=== PATIENT | female | born 1930 | race Caucasian/White ===

== ENCOUNTER 2017-05-19 10:37 | Day surgery (SDC) | payer OTHER, SELFPAY ==
[~2017-05-19] VITALS: Ht 154.9 cm; Wt 57.6 kg
[~2017-05-19 10:37] MED LIST: ASPI81CH PO; CALCAVITDA; CHOLP; CLON.1; CLON.1 PO; EZET10; HYDCHL12.5 PO; HYDCHL25; LORA2 PO; MECL25; MECL25 PO; METO50; MULVITA; NAPROXEN PO; NIFE60ER PO; PREVALITE POWD231 G1 PO; PROP80ER PO
[2017-05-20 04:46] LABS: BASOPHILS ABSOLUTE AUTO 0.03 K/mm3 (0.00-0.23); BASOPHILS PERCENT AUTO 0 % (0-2); EOSINOPHILS ABSOLUTE AUTO 0.51 K/mm3 (0.00-0.68); EOSINOPHILS PERCENT AUTO 5 % (0-6); Hematocrit 32.5 % (33.0-51.0); Hemoglobin 10.5 g/dL (11.5-16.0); IMMATURE GRAN ABSOLUTE AUTO 0.03 K/mm3 (0.00-0.10); IMMATURE GRAN PERCENT AUTO 0 % (0-1); LYMPHOCYTES ABSOLUTE AUTO 1.63 K/mm3 (0.84-5.20); LYMPHOCYTES PERCENT AUTO 16 % (21-46); MONOCYTES ABSOLUTE AUTO 0.79 K/mm3 (0.16-1.47); MONOCYTES PERCENT AUTO 8 % (4-13); Mean Corpuscular HGB 28.7 pg (26.0-34.0); Mean Corpuscular HGB Conc 32.3 g/dL (31.5-36.5); Mean Corpuscular Volume 89 fL (80-100); Mean Platelet Volume 11.4 fL (9.1-12.4); NEUTROPHILS ABSOLUTE AUTO 7.51 K/mm3 (1.96-9.15); NEUTROPHILS PERCENT AUTO 72 % (41-73); Platelet Count 224 K/mm3 (150-400); RDW Coefficient Variation 13.2 % (11.7-14.2); RDW Standard Deviation 42.7 fL (35.1-46.3); Red Blood Cell Count 3.66 M/mm3 (3.80-5.20)
[2017-05-20 05:12] LABS: Anion Gap 5 mmol/L (6-16); Blood Urea Nitrogen 15 mg/dL (8-24); Bun/Creatinine Ratio 19.9 (12.0-20.0); CO2, Blood 33 mmol/L (21-32); Calcium, Blood 8.3 mg/dL (8.5-10.1); Chloride, Blood 99 mmol/L (98-108); Creatinine, Blood 0.75 mg/dL (0.40-1.00); Glomerular Filtration Rate >60 (60-); Glucose, Blood 99 mg/dL (70-99); Potassium, Blood 3.6 mmol/L (3.5-5.5); Sodium, Blood 137 mmol/L (136-145)
[2017-05-20] MEDS ORDERED: ASPI325EC PO (14:24)
[2017-05-20] MEDS ORDERED: DOCU100 PO (14:25)
[2017-05-20] MEDS ORDERED: OXYC5 PO (14:25)
== END 2017-05-20 15:15 | disposition home or self-care (01) ==
LOC: PRE IP 10:37 → SURS 10:37 → ORSCMMR 10:37 → SURS 10:37 → PRE IP 11:30 → EDSTATUS 11:30 → PRE IP 12:15 → SURS 18:27 → ORSCMMR 05-20 15:15
PROVIDERS: Orthopaedic Surgery
PROC: 0SRD0J9 Replacement of Left Knee Joint with Synthetic Substitute, Cemented, Open Approach (ICD-10-PCS; principal; 2017-05-19 12:15)
DX: M17.12 Unilateral primary osteoarthritis, left knee (principal); I10 Essential (primary) hypertension; Z95.0 Presence of cardiac pacemaker; Z01.812 Encounter for preprocedural laboratory examination; Z01.818 Encounter for other preprocedural examination; Z79.899 Other long term (current) drug therapy
CPT/HCPCS: 36415; 73560-LT; 80048; 85025; 86850; 86900; 86901; 88300; 93286; 97110; 97116; 97162; 97530; C1713; C1776; G8978; G8979; J0171; J0690; J0735; J1885; J2250; J2795; J3010; J7120

== ENCOUNTER → 2017-12-24 | Outpatient (CLI) | payer OTHER, SELFPAY ==
[~2017-12-24] MED LIST changes: +ASPI325EC PO; +DOCU100 PO; +OXYC5 PO
== END ==
LOC: PLD 14:30 → LAB SHORT 14:30
DX: C44.41 Basal cell carcinoma of skin of scalp and neck (principal)
CPT/HCPCS: 88305

== ENCOUNTER → 2018-01-11 | Outpatient (CLI) | payer OTHER | END | disposition home or self-care (01) | LOC: PLD 07:41 → LAB SHORT 07:41 | DX: C44.41 Basal cell carcinoma of skin of scalp and neck (principal) | CPT/HCPCS: 88305 ==

== ENCOUNTER 2018-08-18 06:07 | Day surgery (SDC) | payer OTHER ==
[~2018-08-18] VITALS: Ht 154.9 cm; Wt 55.0 kg
[~2018-08-18 06:07] MED LIST changes: +B-12 PO; +BIOTIN PO; +CALCIUM WITH VIT D PO; +FISH OIL PO; +FLAX PO; +Glucosamine-Ch1 EACH PO; +LO-DOSE ASPIRIN81 MG PO; +MULTIVITAMIN PO; +Naproxen375 MG PO; +ZINC PO
[2018-08-18] MEDS ORDERED: LOSARTAN-HCTZ1 EACH PO (08:10)
== END 2018-08-19 22:48 | disposition home or self-care (01) ==
LOC: MHTC 06:07
DX: I08.3 Combined rheumatic disorders of mitral, aortic and tricuspid valves (principal); I10 Essential (primary) hypertension; E78.5 Hyperlipidemia, unspecified; M85.80 Other specified disorders of bone density and structure, unspecified site; Z79.82 Long term (current) use of aspirin; Z79.899 Other long term (current) drug therapy; Z88.8 Allergy status to other drugs, medicaments and biological substances; Z87.891 Personal history of nicotine dependence; Z95.0 Presence of cardiac pacemaker
CPT/HCPCS: 93312; 93325; 99152; J2250; J3010; J7040

== ENCOUNTER → 2019-03-03 | Outpatient (CLI) | payer OTHER ==
[~2019-03-03] MED LIST changes: +LOSARTAN-HCTZ1 EACH PO
== END | disposition home or self-care (01) ==
LOC: PLD 07:26 → LAB SHORT 07:26
DX: D04.0 Carcinoma in situ of skin of lip (principal)
CPT/HCPCS: 88305

== ENCOUNTER → 2019-06-14 | Outpatient (CLI) | payer OTHER ==
[2019-06-14 14:57] LABS: Bilirubin, Urine Neg (Neg); Blood, Urine Neg (Neg); Glucose Qualitative, Urine Neg (Neg); Ketones, Urine Neg (Neg); Leukocyte Esterase, Urine 3+ (Neg); Nitrite, Urine Neg (Neg); Protein, Urine Neg (Neg); Urobilinogen, Urine NORM (Normal); pH, Urine 6.5 (5.0-8.0)
[2019-06-14 15:23] LABS: Appearance, Urine Clear (Clear); Color, Urine Yellow (P-Yellow)
[2019-06-14 15:25] LABS: Bacteria Few /hpf; Red Blood Cells, Urine 0-2 /hpf (0-2); Squamous Epithelial Cells Rare /hpf (Few); White Blood Cells, Urine 25-50 /hpf (0-5)
== END | disposition home or self-care (01) ==
LOC: LAB SHORT 12:17 → LAB 12:17
PROVIDERS: Internal Medicine
DX: I12.9 Hypertensive chronic kidney disease with stage 1 through stage 4 chronic kidney disease, or unspecified chronic kidney disease (principal); N18.3 Chronic kidney disease, stage 3 (moderate)
CPT/HCPCS: 81001; 82570; 84156

== ENCOUNTER 2019-12-12 13:20 | Emergency (ER) | payer OTHER ==
[~2019-12-12] VITALS: Ht 157.5 cm; Wt 61.2 kg
[~2019-12-12 13:20] MED LIST changes: +MULTI VITAMIN1 EACH PO; -MULTIVITAMIN PO
[2019-12-12 13:39] LABS: BASOPHILS ABSOLUTE AUTO 0.04 K/mm3 (0.00-0.23); BASOPHILS PERCENT AUTO 0 % (0-2); EOSINOPHILS PERCENT AUTO 0 % (0-6); Hematocrit 38.2 % (33.0-51.0); Hemoglobin 12.4 g/dL (11.5-16.0); IMMATURE GRAN ABSOLUTE AUTO 0.05 K/mm3 (0.00-0.10); IMMATURE GRAN PERCENT AUTO 0 % (0-1); LYMPHOCYTES ABSOLUTE AUTO 1.28 K/mm3 (0.84-5.20); LYMPHOCYTES PERCENT AUTO 9 % (21-46); MONOCYTES ABSOLUTE AUTO 0.41 K/mm3 (0.16-1.47); MONOCYTES PERCENT AUTO 3 % (4-13); Mean Corpuscular HGB Conc 32.5 g/dL (31.5-36.5); Mean Corpuscular Volume 89 fL (80-100); Mean Platelet Volume 11.3 fL (9.1-12.4); NEUTROPHILS ABSOLUTE AUTO 12.53 K/mm3 (1.96-9.15); NEUTROPHILS PERCENT AUTO 88 % (41-73); Platelet Count 309 K/mm3 (150-400); RDW Coefficient Variation 13.2 % (11.7-14.2); RDW Standard Deviation 43.7 fL (35.1-46.3); Red Blood Cell Count 4.28 M/mm3 (3.80-5.20); White Blood Cell Count 14.31 K/mm3 (4.00-11.30)
[2019-12-12 13:55] LABS: Alanine Aminotransfer (ALT/SGP 22 U/L (12-78); Albumin, Blood 3.8 g/dL (3.4-5.0); Albumin/Globulin Ratio 0.8 (0.8-1.8); Alk Phos 84 U/L (50-136); Anion Gap 7 mmol/L (6-16); Aspartate Aminotrans (AST/SGOT 17 U/L (12-37); Bilirubin, Total 0.8 mg/dL (0.1-1.0); Blood Urea Nitrogen 30 mg/dL (8-24); Bun/Creatinine Ratio 40.6 (12.0-20.0); CO2, Blood 29 mmol/L (21-32); Calcium, Blood 9.5 mg/dL (8.5-10.1); Chloride, Blood 100 mmol/L (98-108); Creatinine, Blood 0.74 mg/dL (0.40-1.00); Globulin, Blood 4.8 g/dL (2.2-4.0); Glomerular Filtration Rate >60 (60-); Glucose, Blood 133 mg/dL (70-99); Potassium, Blood 3.6 mmol/L (3.5-5.5); Sodium, Blood 136 mmol/L (136-145); Total Protein, Blood 8.6 g/dL (6.4-8.2)
[2019-12-12 13:56] LABS: International Normalized Ratio 1.02; Prothrombin Time Results 10.9 Sec (9.7-11.5)
[2019-12-12 14:10] LABS: Calcium, Ionized (POC) 1.18 mmol/L (1.10-1.46); Chloride (POC) 100 mmol/L (98-108); Creatinine (POC) 0.7 mg/dL (0.6-1.0); Glucose (ISTAT POC) 127 mg/dL (70-99); Hemoglobin (POC) 12.9 g/dL (12.0-16.0); Potassium (POC) 3.3 mmol/L (3.5-5.5); Sodium (POC) 138 mmol/L (135-148); Total CO2 (POC) 25 mmol/L (21-32)
[2019-12-12 15:43] LABS: CPK Creatine Kinase 179 U/L (26-193); Troponin I <0.015 ng/mL (0.000-0.040)
--- NOTE | 2019-12-12 16:07 | NUR ---
Spoke with Dr Brito and discussed case. Pt has experienced a significant CVA with Pt and family not wanting any significant interventions. Plan is to admit Pt until hospice can be arrange. Pt resting on gurney with daughter Reyna at bedside. Pt attempts to speak and struggles with verbal communication. Pt is able to nod her head for yes and no questions. Pt appears to be experiencing some expressive aphasia. Engaged in therapeutic discussion regarding goals of care. Daughter Reyna reports up until this event Pt was independent and boweling on a regular basis. Reyna reports Pt and family does not want any interventions done. Discussed hospice as an option with Reyna reporting family is agreeable for hospice. Pt is able to nod her head yes to hospice. Educated on hospice philosophy with Reyna reporting having experienced hospice with other family members. Dr Brito in to report plan to check on one other possible intervention. No other concerns reported at this time. Spoke with ED Curtain Fitter Annia and discussed case. Spoke with Inpatient Curtain Fitter Keysha and discussed case. Palliative Care will F/U with Pt once admitted to the floor.
--- NOTE | 2019-12-12 17:01 | NUR ---
Spoke with Dr Brito and discussed case. Family and Pt has reconsidered options with Pt accepting transfer to [facility] to determine if she is a candidate. Spoke with Pt's daughter Reyna. Reyna reports Pt changed her mind and is willing for further testing. Discussed plan to transfer Pt to [place] with Pt and family agreeable. No other concerns reported at this time. Palliative Care will remain available.
== END 2019-12-12 17:35 | disposition short-term general hospital (02) ==
LOC: ER 13:20
PROVIDERS: Emergency Medicine
DX: I63.9 Cerebral infarction, unspecified (principal); G81.94 Hemiplegia, unspecified affecting left nondominant side; R47.01 Aphasia; I10 Essential (primary) hypertension; Z95.0 Presence of cardiac pacemaker; Z20.828 Contact with and (suspected) exposure to other viral communicable diseases
CPT/HCPCS: 70450; 70496; 70498; 71045; 80047; 80053; 82550; 84484; 85014; 85025; 85610; 93005; 93010; 99285-25; J7030; Q9967; U0002